=== PATIENT | female | born 1960 | race Caucasian/White ===

== ENCOUNTER → 2024-09-04 | Outpatient (CLI) | payer MEDICAID, SELFPAY | END | disposition home or self-care (01) | LOC: SL 19:59 | PROVIDERS: Visit Provider Internal Medicine Sleep Medicine | DX: G47.33 Obstructive sleep apnea (adult) (pediatric) (principal) | CPT/HCPCS: 95811 ==

== ENCOUNTER → 2024-10-09 | Outpatient (CLI) | payer MEDICAID, SELFPAY ==
[2024-10-09 15:07] LABS: Hematocrit 39.3 % (37-47); Hemoglobin 12.8 g/dL (12.0-15.0); Mean Corp Hgb Conc 32.6 g/dL (32-36); Mean Corpuscular Hgb 31.4 pg (27.0-32.0); Mean Corpuscular Volume 96.3 fL (81-99); Mean Platelet Vol. 10.9 fl (6.2-12.0); Platelet Count 192 K/mm3 (150-450); RBC Distribution Width CV 12.8 % (11.6-14.6); RBC Distribution Width SD 45.6 fl (35.1-43.9); Red Blood Count 4.08 M/mm3 (4.2-5.4); White Blood Count 5.3 K/mm3 (4.4-11.0)
[2024-10-09 15:39] LABS: Erythrocyte Sedimentation Rate 1 mm/hr (0-30)
[2024-10-09 15:47] LABS: CRP 3.16 mg/L (0.0-3.0); Rheumatoid Factor < 10.0 IU/mL (<15)
[2024-10-11 13:07] LABS: CCP IgG Antibodies 8 units (0-19)
[2024-10-13 13:06] LABS: ANTINUCLEAR ANTIBODIES DIRECT Negative (Negative); Anti-dsDNA Ab <1 IU/mL (0-9); RNP Ab <0.2 AI (0.0-0.9); SJOGREN'S Anti-SS-A test < 0.2 AI (0.0-0.9); SJOGREN'S Anti-SS-B test < 0.2 AI (0.0-0.9)
== END | disposition home or self-care (01) ==
PROVIDERS: Referring Provider Podiatrist; Visit Provider Podiatrist
DX: M79.671 Pain in right foot (principal); M79.672 Pain in left foot
CPT/HCPCS: 36415; 85027; 85652; 86038; 86140; 86200; 86225; 86235; 86431

== ENCOUNTER → 2024-10-29 | Outpatient (CLI) | payer MEDICAID, SELFPAY ==
--- NOTE | 2024-10-29 10:15 | NEURO_ITS ---
NCS and/or EMG Patient Report Ordering Doctor: Niall Delgado DATE OF SERVICE: 10/29/24 Sima presents for electrodiagnostic testing of the lower limbs. She reports a cold sensation in both feet. Electrodiagnostic findings: Peroneal motor nerve demonstrates normal distal latency, amplitude and conduction velocity bilaterally. Tibial motor responses within normal limits bilaterally. Absent right sural response. Prolonged left sural latency. Normal superficial peroneal response on the right side. Prolo nged left superficial peroneal latency. Prolonged H?reflex bilaterally. Prolonged right peroneal F?wave. Needle EMG testing was performed in the lower limbs. Patient demonstrated poor tolerance for the needle portion of the examination but we were able to complete it. All muscles tested showed no evidence of denervation with normal motor unit action potentials. Electrodiagnostic impression: This is an abnormal study in the lower limbs 1. Electrodiagnostic findings suggestive of a mild sensory polyneuropathy. 2. No electrodiagnostic evidence is noted for lumbosacral radiculopathy. 3. There is no electrodiagnostic evidence for myopathy. Multi Select Codes Neurology Neurology Interp Codes: 57922-64 Musc test done w/n test comp (interp) (2) and 19203-14 Nrv cndj test 9-10 studies (interp)
== END | disposition home or self-care (01) ==
LOC: PSN 08:34
PROVIDERS: PCP Nurse Practitioner Family; Referring Provider Podiatrist; Visit Provider Podiatrist
DX: R20.2 Paresthesia of skin (principal)
CPT/HCPCS: 95886; 95911

== ENCOUNTER → 2024-11-04 | Outpatient (CLI) | payer MEDICAID, SELFPAY ==
--- NOTE | 2024-11-04 09:44 | ART_ITS ---
Reason For Study Reason For Study: PVD Procedure A bilateral lower extremity continuous wave Doppler with analog waveform analysis,segmental pressures,and ankle brachial indexes without exercise. Left Segmental Pressures Left brachial= 143mmHg. Left posterior tibial artery = 162mmHg. Left dorsalis pedis artery = 168mmHg. Left digit = 112 mmHg. The left dorsalis pedis waveforms are triphasic. The left posterior tibial artery waveforms are triphasic. Right Segmental Pressures Right brachial= 143mmHg. Right posterior tibial artery = 159mmHg. Right dorsalis pedis artery = 156mmHg. Right digit = 123 mmHg. The right dorsalis pedis waveforms are triphasic. The right posterior tibial artery waveforms are triphasic. Indices The right ankle brachial index by the dorsalis pedis is 1.09. The right ankle brachial index by the posterior tibial artery is 1.11. The right digital-brachial index is 0.86. The left ankle brachial index by the dorsalis pedis is 1.17. The left ankle brachial index by the posterior tibial artery is 1.13. The left digital-brachial index is 0.78. VL/Lower Ext Art Exam w/o Exercis Interpretation Summary Triphasic Doppler waveforms are noted at ankle level bilaterally. Pulse-volume recordings appear satisfactory at all levels bilaterally. Resting ankle-brachial indices are normal bilaterally. Digi gaurang-brachial indices are normal bilaterally. There is no evidence of significant arterial occlusive disease in the lower ext remities bilaterally. Ordering Physician: Niall Delgado Referring Physician: Krysten Schaeffer Performed By: Anitha Antoine RVT
== END | disposition home or self-care (01) ==
LOC: CVS 09:41
PROVIDERS: PCP Nurse Practitioner Family; Referring Provider Podiatrist; Visit Provider Podiatrist
DX: M79.671 Pain in right foot (principal); M79.672 Pain in left foot
CPT/HCPCS: 93923

== ENCOUNTER 2025-05-08 14:00 | Outpatient (RCR) | payer MEDICAID, SELFPAY ==
--- NOTE | 2025-03-25 16:01 | HP.PTEVAL_ITS ---
Patient's Visit Information Visit Information Visit Information: JONNY KIRKLAND is a 64 year old F referred to Physical Therapy by Krysten Schaeffer with a diagnosis of LBP. Date of Evaluation: 03/25/25 Physical Therapist: Kendall Solomon, ELENAT, OCS, CSCS Visit Plan Frequency: 2x /Week Duration: 4-6 Weeks Plan: 2x/week for 4-6 weeks... IE HEP: trunk rotation 20x, PPT 20x, seated flexion 15x 3x/day with pics and HO, also NS position in standing and avoid aggravating activities. Please treat with psoas and HS stretching to HEP, NS mat based core strength to HEP, standing NS core adn general strength to HEP. may rollout psoas and HS if needed, consider pool therapy if not improving. Focus should be on NS position. Work on gtting on shos and socks. Subjective Subjective: Pain all over body for years. Here for her back pain. H/o knee surgeries yrs ago. Back is painful and has hurt since 22 something shovelling snow. Reinjured a number of times. Potential for regular pain for years. Just moved from [place] a year ago. Back pain worse with standing and washing dishes is the worst, bending over half way is painful, not much pain sitting. No leg symptoms from this. Walking can hurt and grocery store is about it. leaning on cart helps. No regular exercise. Not employed. Hobbies : gardening: bends to garden b/c knees are bad. Sits on ground at times to garden. Hard to get up Basic ADLs: all I. Hard to clip toes as she cannot gt down that far. Some pulling in back. Pain LBP: Pain Intensity (Out of 10): 0 Pain Intensity Range: 0 and 7 Comment: got to sit.standing and walking is painful Objective Objective: Walks I and transfers I with chair and bed with great weakness and instability. Poor pelvic movement and default is anteriorly tilted and veery stiff in lumbar. Tender L posterior paraspinals moderately. Lumbar AROM ext painful centrally and mod limited, flexion segmentally limited lower lumbar moderate to max. hip AROM is 100 flexion B, er and ir B 30/8 before pain. knee aROM L limited and pianful, R WFL. Knee strength 3+ ext and flexion with instability at hip testing in trunk. ankles WFL 4/5 reflexes patella and achilles 1/3 B. Sensation LE WNL to gross light touch B. - slump and SLR. HS and psoas max tight at -30 90/90 test. Balance/Special Test Scores Oswestry Low Back Score: 16 Goals Goal 1:: Find and maintain NS position without VC in standing Goal Time Frame: 4-6 Weeks Goal 2:: Pain in LB 3/10 at worst adn 60% improved. Goal Time Frame: 4-6 Weeks Goal 3:: I appropriate HEP to manage conditiion Goal Time Frame: 4-6 Weeks Goal 4:: put on socks without difficulty. Goal Time Frame: 4-6 Weeks Goal 5:: Wash dishes without increased pain Goal Time Frame: 4-6 Weeks Rehabilitation Potential Physical Therapy Diagnosis: weakness and degeneration back adn LE joints leading to pain and limited funciton. Rehabilitation Potential: Fair Anticipated Interventions Patient/Client Instruction: Educate patient on: Condition and Plan of Care For the Purpose of:: To decrease pain, To increase ROM, To improve nutrient d elivery to tissue, To improve muscle performance and motor function and To increase tolerance to activity/condition/position Therapeutic Exercise to Include: Strength training, Postural training, Flexibilty training, Passive ROM, Active ROM and Dynamic Lumbar Stabilization For the Purpose of:: To decrease pain, To increase ROM, To improve nutrient de livery to tissue, To improve muscle performance and motor function and To increase tolerance to activity/condition/position Manual Therapy Techniques to Include: Mobilization and Passive ROM For the Purpose of:: To increase ROM, To improve nutrient delivery to tissue, To increase tolerance to activity/condition/position, To improve ability of physica l actions for home/community/work/leisure and To improve gait and locomotor functions Text: Thank you for the opportunity to evaluate your patient. For Medicare and Medicare HMO plans, please review the plan of care and approve it. It will need to be FAXED BACK to us at [phone] for Medicare purposes. For Medicare only, by signing this I certify the plan of care. Please let me know if there are questions or concerns regarding this plan of care. Physician Signature: Date:___
--- NOTE | 2025-05-08 14:46 | HP.PTDCSUM_ITS ---
Discharge Summary D/C summary: It has been my pleasure to treat JONNY KIRKLAND referred by Krysten Schaeffer, with the diagnosis of LBP for a total of 12 visit(s). Discharge Date: 05/08/25 Please see the following information for a summary of their discharge status. Subjective Subjective: Non compliance with HEP. Moving in a couploe weeks. Happy about that. Better than a month ago. I can get my leg in car easier. Pain is up to 3-4/10 with bending too much and lifting. Had cortisone in L knee and it helped for a week. Will see Maksim tomorrow and then never again coming back to [place]. Pain LBP: Pain Intensity (Out of 10): 2 Overall Improvement % Improvement: 10 Objective Objective/Function: walking slow but well, no antalgia today. trasnfer chair I. Attitude joyce now that moving to [facility] but still noncompliant with HEP as she is packing. Goals Goal 1:: Find and maintain NS position without VC in standing Goal Progress: Not Progressing Goal 2:: Pain in LB 3/10 at worst adn 60% improved. Goal Progress: Not Progressing Goal 3:: I appropriate HEP to manage conditiion Goal Progress: Progressing Goal 4:: put on socks without difficulty. Goal Progress: Progressing Goal 5:: Wash dishes without increased pain Goal Progress: Not Progressing Plan Plan: d/c, pt leaving town and will not seek further treatment once out in [place] D/C Information d/c sentence: If there are questions or concerns regarding this patient's physical therapy, please feel free to call me at [phone]. Thank you for the referral of this patient. Sincerely, Kendall Solomon, DPT, OCS, CSCS Balance/Gait/Functional tests Balance/Special Test Scores Oswestry Low Back Score: 15 Improvement % Improvement: 10
== END 2025-05-08 19:00 | disposition home or self-care (01) ==
LOC: PT 14:00
PROVIDERS: PCP Nurse Practitioner Family
DX: M54.50 Low back pain, unspecified (principal)
CPT/HCPCS: 97110; 97161; 97164; 97530